=== PATIENT | male | born 1945 | race Hispanic/Latino ===

== ENCOUNTER 2020-03-05 19:58 | Inpatient (IN) | payer MEDICARE, OTHER ==
[~2020-03-05] VITALS: Ht 165.1 cm; Wt 88.5 kg
[2020-03-05] MEDS ORDERED: ACETAMINOPHEN 325 MG TAB PO STA (20:01)
[2020-03-05] MEDS ORDERED: CEFEPIME 1GM/NS 0.9% 50 ML 50 ML IV STA (20:06)
[2020-03-05] MEDS ORDERED: VANCOMYCIN 750MG/NS 150ML IVPB 150 ML IV SCH (20:15)
[2020-03-05] MEDS ORDERED: SODIUM CHLORIDE 0.9% 1000ML 1,000 ML IV SCH (20:15)
--- NOTE | 2020-03-05 20:57 | Emergency Department Note ---
History of Present Illnes History of Present Illness Chief Complaint: Neurological History of Present Illness This is a 75 year old male Chief Complaint Comment Patient brought in by [facility] for c/o fever since Sunday. [facility] but left becuase the wait was too long. Historian: Program Manager Environmental Planning/EMS Arrival Mode: [facility] Treatment WEBFOCUS DEVELOPER: IV, See EMS Report Machine Feeder Raw Stock Required: No Past Medical/Family History Physician Review I have reviewed the patient's past medical and family history. Any updates have been documented here. Past Medical History Recent Fever: No Clinical Suspicion of Infectio: No New/Unexplained Change in Ment: No Other Surgery: FB FROM LEG Physical Exam Related Data Allergies: Coded Allergies: No Known Drug Allergies (Verified Allergy, Mild, 06/23/09) Triage Vital Signs Vital Signs Date Time Temp Pulse Resp B/P (MAP) Pulse Ox O2 Delivery O2 Flow Rate FiO2 03/05/20 20:00 100.6 78 16 128/95 97 Room Air Physical Exam CONSTITUTIONAL HENT EYES NECK PULMONARY CARDIOVASCULAR GASTROINTESTINAL GENITOURINARY SKIN MUSCULOSKELETAL NEUROLOGICAL PSYCHOLOGICAL Assessment & Plan Medical Decision Making MDM 75 y.o m presents for fever, confusion, diarrhea. W/u shows enterocolitis. Doubt meningitis. HIV history but on HAART and states he is undetectable. Vanc/Cefepime started. Admitted to Dr. Malik for enterocolitis. Reassessment Reassessment time: 23:18 Reassessment Well appearing, NAD Assessment & Plan Final Impression: (1) Enterocolitis Depart Disposition: ADMITTED Last Vital Signs Date Time Temp Pulse Resp B/P (MAP) Pulse Ox O2 Delivery O2 Flow Rate FiO2 03/05/20 20:00 100.6 78 16 128/95 97 Room Air Home Meds No Active Prescriptions or Reported Meds Medications in the ED Acetaminophen 650 mg ONCE STAT PO ; Start 03/05/20 at 20:01; Stop 03/05/20 at 20:07; Status DC Sodium Chloride 1,000 ml @ 0 mls/hr Q0M IV ; Start 03/05/20 at 20:15; Stop 03/05/20 at 21:14 Cefepime HCl 50 ml @ 100 mls/hr Q12H STAT IV ; Start 03/05/20 at 20:06; Stop 03/05/20 at 20:35; Status DC Vancomycin HCl 150 ml @ 100 mls/hr Q12H IV ; Start 03/05/20 at 20:15; Stop 03/12/20 at 20:14 CHERYL VILLALTA MD Mar 05, 2020 20:57
[2020-03-05 21:11] LABS: BASOPHILS % 0.3 % (0.0-1.0); EOSINOPHILS % 0.1 % (0.0-6.0); HEMATOCRIT 41.6 % (38.2-49.6); LYMPHOCYTES # (AUTO) 0.8 (1.0-3.2); LYMPHOCYTES % 7.7 % (18.0-39.1); MEAN CORPUSCULAR HEMOGLOBIN 30.2 pg (28-32); MEAN CORPUSCULAR HGB CONC 33.7 g/dL (31-35); MEAN CORPUSCULAR VOLUME 89.7 fL (81-99); MONOCYTES # (AUTO) 0.9 (0.2-0.8); MONOCYTES % 8.1 % (4.4-11.3); NEUTROPHILS # (AUTO) 8.8 (2.1-6.9); NEUTROPHILS % 83.2 % (38.7-80.0); PLATELET COUNT 164 x10e3/uL (140-360); RED BLOOD COUNT 4.64 x10e6/uL (4.3-5.7); RED CELL DISTRIBUTION WIDTH 12.5 % (11.7-14.4)
[2020-03-05 21:32] LABS: ALANINE AMINOTRANSFERASE 25 IU/L (0-55); ALBUMIN 3.5 g/dL (3.5-5.0); ALBUMIN/GLOBULIN RATIO 1.3 (0.8-2.0); ALKALINE PHOSPHATASE 66 IU/L (40-150); ANION GAP 12.5 mmol/L (8-16); BLOOD UREA NITROGEN 18 mg/dL (7-26); BUN/CREATININE RATIO 18 (6-25); CALCIUM 8.2 mg/dL (8.4-10.2); CARBON DIOXIDE 24 mmol/L (22-29); CHLORIDE 104 mmol/L (98-107); CREATININE, SERUM 0.99 mg/dL (0.72-1.25); EST GLOMERULAR FILTRATION RATE > 60 ML/MIN (60-); GLUCOSE 117 mg/dL (74-118); POTASSIUM 3.5 mmol/L (3.5-5.1); SODIUM 137 mmol/L (136-145)
--- NOTE | 2020-03-05 21:35 | Diagnostic Imaging Report ---
Exam: Head CT without contrast History: Fever, altered mental status Comparison studies: None Technique: Axial images were obtained from the skull base to the vertex. Coronal and sagittal images reconstructed from the axial data. Dose modulation, iterative reconstruction, and/or weight based adjustment of the mA/kV was utilized to reduce the radiation dose to as low as reasonably achievable. Radiation dose: Total DLP: 832 mGy*cm. Estimated effective dose: DLP x 0.015 Intravenous contrast: None Findings: Scalp: No abnormalities. Bones: No fractures, blastic or lytic lesions. Brain sulci: Appropriate for age. Ventricles: Normal in size and configuration. No hydrocephalus. Extra-axial spaces: No masses, no fluid collection. Parenchyma: No mass, acute hemorrhage or acute or chronic cortical insults. A few scattered subtle hypodensities in the supratentorial white matter are nonspecific but are most compatible with chronic microvascular ischemic changes. Sellar/suprasellar region: No abnormalities. Craniocervical junction: Patent foramen magnum. No Chiari one malformation. Included paranasal sinuses: Clear. Middle ear cavities and mastoids: Clear. Incidental findings: Atherosclerotic calcifications in the carotid siphons. IMPRESSION: 1. No acute intracranial abnormalities. 2. Mild chronic microvascular ischemic changes. Signed by: Dr. David Velasco M.D. on 03/05/2020 9:32 PM
[2020-03-05] MEDS ORDERED: IOPAMIDOL 370 MG/ML 200 ML INFUS..BTL INJ ONE (22:01)
[2020-03-05] MEDS ORDERED: SODIUM CHLORIDE 0.9% 50ML 50 ML ONE (22:01)
--- NOTE | 2020-03-05 22:27 | Diagnostic Imaging Report ---
EXAMINATION: CHEST SINGLE (PORTABLE) INDICATION: Fever COMPARISON: Same day abdominal CT FINDINGS: TUBES and LINES: None. LUNGS: Normal lung volumes. Lungs are clear. Prominent central pulmonary vasculature. PLEURA: No pleural effusion or pneumothorax. HEART AND MEDIASTINUM: Cardiac size is mildly enlarged. BONES AND SOFT TISSUES: No acute osseous lesion. Soft tissues are unremarkable. UPPER ABDOMEN: No free air under the diaphragm. IMPRESSION: Mild cardiomegaly and pulmonary vascular congestion. Signed by: Brent Godinez DO on 03/05/2020 10:22 PM
--- NOTE | 2020-03-05 22:30 | Diagnostic Imaging Report ---
EXAM: CT Abdomen and Pelvis WITH contrast INDICATION: Abdominal pain, fever COMPARISON: None. TECHNIQUE: Abdomen and pelvis were scanned utilizing a multidetector helical scanner from the lung base to the pubic symphysis after administration of IV contrast. Coronal and sagittal reformations were obtained. Routine protocol was performed. Scan was performed when during portal venous phase. IV CONTRAST: 100 mL of Isovue 370 ORAL CONTRAST: None COMPLICATIONS: None RADIATION DOSE: Total DLP: 760 mGy*cm Estimated effective dose: (DLP x 0.015 x size factor) mSv CTDIvol has been reviewed. It is below the limits set by the Radiation Protocol Committee (RPC). Dose modulation, iterative reconstruction, and/or weight based adjustment of the mA/kV was utilized to reduce the radiation dose to as low as reasonably achievable. FINDINGS: LINES and TUBES: None. LOWER THORAX: Unremarkable HEPATOBILIARY: Tiny hypodensity in the right hepatic lobe, too small to characterize, likely benign. Hypodense liver. No focal hepatic lesions. No biliary ductal dilation. GALLBLADDER: No radio-opaque stones or sludge. No wall thickening. SPLEEN: No splenomegaly. PANCREAS: No focal masses or ductal dilatation. ADRENALS: No adrenal nodules KIDNEYS/URETERS: Kidneys enhance symmetrically. No hydronephrosis. No cystic or solid mass lesions. No stones. GI TRACT: Small sliding gastric hiatal hernia with mild distal esophageal wall thickening. No abnormal distention, or evidence of bowel obstruction. Mild wall thickening of the distal ileum and cecum and descending/transverse colon. Appendix is normal. PELVIC ORGANS/BLADDER: Mild prostatomegaly. LYMPH NODES: No lymphadenopathy. VESSELS: Arterial calcifications. PERITONEUM / RETROPERITONEUM: No free air or fluid. BONES: Degenerative changes. SOFT TISSUES: Unremarkable. IMPRESSION: Subtle findings suggestive of enterocolitis. Hepatic steatosis. Signed by: Brent Godinez DO on 03/05/2020 10:30 PM
[2020-03-05 22:35] LABS: BILIRUBIN,URINE NEGATIVE (NEGATIVE); CLARITY,URINE CLEAR (CLEAR); COLOR,URINE YELLOW (YELLOW); KETONES,URINE NEGATIVE (NEGATIVE); LEUKOCYTE ESTERASE ,URINE NEGATIVE (NEGATIVE); NITRITE,URINE NEGATIVE (NEGATIVE); PROTEIN,URINE DIPSTICK NEGATIVE (NEGATIVE); URINE UROBILINOGEN 0.2 mg/dL (0.2 - 1)
[2020-03-05 22:42] LABS: BACTERIA,URINE FEW /HPF; EPITHELIAL CELLS,URINE RARE /LPF; RBC,URINE 0-5 /HPF (0-5); WBC,URINE (MAN) 0-5 /HPF (0-5)
[2020-03-05] MEDS ORDERED: ONDANSETRON HCL INJ 2MG/ML 2ML 2 MG/ML VIAL IV PRN (23:30)
[2020-03-05] MEDS ORDERED: MORPHINE SULFATE INJ 4 MG/ML INJ 1ML IV PRN (23:30)
[2020-03-05] MEDS ORDERED: VANCOMYCIN 1GM/NS 250 ML 250 ML IV ONE (23:45)
[2020-03-06] VITALS (10 sets, daily range): BP systolic 99–140; BP diastolic 58–93
--- NOTE | 2020-03-06 01:15 | NUR ---
RECEIVED PATIENT FROM ER. PATIENT IS AAOX3. RESP EVEN AND UNLABORED. NO ACUTE DISTRESS NOTED AT THIS TIME. ORIENTED TO ROOM. EDUCATED PT ABOUT FALL PRECAUTIONS. PT VERBALIZED UNDERSTANDING. BED IS LOW AND LOCKED. SIDE RAILS X2. CALL LIGHT WITH IN EASY REACH. BED ALARM IS ON. ALL SAFETY MEASURES IN PLACE. PT DENIES NEEDS AT THIS TIME.
[2020-03-06 05:43] LABS: BASOPHILS % 0.2 % (0.0-1.0); EOSINOPHILS % 0.1 % (0.0-6.0); HEMATOCRIT 42.1 % (38.2-49.6); LYMPHOCYTES # (AUTO) 0.9 (1.0-3.2); MEAN CORPUSCULAR HGB CONC 33.3 g/dL (31-35); MEAN CORPUSCULAR VOLUME 90.3 fL (81-99); MONOCYTES # (AUTO) 0.9 (0.2-0.8); MONOCYTES % 9.2 % (4.4-11.3); NEUTROPHILS # (AUTO) 7.7 (2.1-6.9); NEUTROPHILS % 81.3 % (38.7-80.0); PLATELET COUNT 148 x10e3/uL (140-360); RED BLOOD COUNT 4.66 x10e6/uL (4.3-5.7); RED CELL DISTRIBUTION WIDTH 12.6 % (11.7-14.4)
[2020-03-06 06:06] LABS: ANION GAP 10.5 mmol/L (8-16); BLOOD UREA NITROGEN 16 mg/dL (7-26); BUN/CREATININE RATIO 20 (6-25); CARBON DIOXIDE 23 mmol/L (22-29); CHLORIDE 108 mmol/L (98-107); EST GLOMERULAR FILTRATION RATE > 60 ML/MIN (60-); GLUCOSE 108 mg/dL (74-118); POTASSIUM 3.5 mmol/L (3.5-5.1); SODIUM 138 mmol/L (136-145)
[2020-03-06] MEDS ORDERED: TIVICAY50 MG PO (07:02)
[2020-03-06] MEDS ORDERED: SERTRALINE HCL50 MG PO (07:02)
[2020-03-06] MEDS ORDERED: LORATADINE10 M1 PO (07:02)
[2020-03-06] MEDS ORDERED: NAMENDA10 MG PO (07:02)
[2020-03-06] MEDS ORDERED: ATORVASTATIN CA10 MG PO (07:02)
[2020-03-06] MEDS ORDERED: ASPIRIN81 MG PO (07:02)
[2020-03-06] MEDS ORDERED: LEVOFLOXACIN 500MG/D5W 100ML 100 ML IV SCH (12:15)
--- NOTE | 2020-03-06 12:26 | History and Physical ---
CHIEF COMPLAINT: Diarrhea, abdominal pain, and food poisoning. HISTORY OF PRESENT ILLNESS: The patient is a 75-year-old male, came into the hospital complaining of increasing abdominal pain. The patient apparently was eating some raw oyster and developed abdominal pain for the past three days. He went to the emergency room at the [facility] and he was with a lot of pain, but they were slow in response to his symptoms. Therefore, he signed out against medical advice and now he is emergency room for a visit. The patient is having diarrhea. He is having abdominal pain. Potassium was 3.5. The patient's CT scan showed enterocolitis. He is also still having diarrhea, dehydration, and abdominal pain. The patient is admitted for treatment. PAST MEDICAL HISTORY: The patient has HIV. Hypertension. Dyslipidemia. Depression and anxiety disorder. Some mild dementia. PAST SURGICAL HISTORY: Noncontributory. SOCIAL HISTORY: The patient does not smoke or use alcohol. No regular drugs. ALLERGIES: NO KNOWN ALLERGIES. HOME MEDICATIONS: The patient on his HIV medication Namenda, Zoloft, Tivicay, and aspirin. REVIEW OF SYSTEMS: Diarrhea, abdominal pain. Some nausea, but no vomiting. No neurological deficit. No chest pain. No shortness of breath. PHYSICAL EXAMINATION: VITAL SIGNS: Temperature is 101, blood pressure 122/93, pulse rate 67, and respirations 18. GENERAL: The patient is not in acute distress. HEENT: Normocephalic and atraumatic. Anicteric. NECK: Supple. PULMONARY: Diminished breath sounds. CARDIOVASCULAR: S1-S2. Regular rate and rhythm. ABDOMEN: Soft, tenderness with no guarding or rebound tenderness. EXTREMITIES: No cyanosis or edema. NEUROLOGIC: No focal deficit. LABORATORY DATA: Sodium is 137, potassium 3.5, chloride 104, bicarb 24, BUN 18, creatinine 0.9, and glucose 117. WBC is 10.3, hemoglobin 14, hematocrit 42, and platelets 364. Coronavirus disease-19, pending. Urinalysis unremarkable. CT of abdomen and pelvis showed enterocolitis. Hepatic steatosis. Chest x-ray showed mild cardiomegaly and mild pulmonary vascular congestion. IMPRESSION: 1. Acute gastroenteritis. 2. Enterocolitis. 3. Abdominal pain. 4. Baseline human immunodeficiency virus. 5. Fever. 6. Electrolyte disorder. PLAN: Replace electrolytes. Antibiotic. Rocephin IV and oral vancomycin. Resume the patient's home medication. Check for blood culture. Urine culture. We will monitor the patient closely due to his HIV status. Coronavirus 19 serology PCR is still pending. MD ARMINDA Ocampo/MODL /[id number]
--- NOTE | 2020-03-06 13:17 | Consultation ---
DATE OF CONSULTATION: 03/06/2020 REQUESTING PHYSICIAN: Hermilo Malik MD. REASON FOR CONSULTATION: Consultation requested regarding HIV disease and gastroenteritis. Thank you for this consultation. HISTORY OF PRESENT ILLNESS: This is a 75-year-old male who has a history of HIV disease, virus load, and cell count. CD4 count is under control. The patient is on Truvada and Tivicay, who was brought in because of diarrhea. The patient had raw oysters about 3-4 days ago. The patient was admitted because of fever, confusion. Initial temperature 100.6 degrees with slight tachycardia. Blood pressure was stable. On initial evaluation, WBC count of 10, platelets 164. Blood cultures are pending. Urine cultures were done, pending. Urinalysis is unremarkable. COVID-19 testing was done, which is pending. The patient did have a CT scan of the abdomen and pelvis done which showed subtle findings of enterocolitis and hepatic steatosis. Chest x-ray showed mild cardiomegaly and pulmonary vascular congestion. Brain CT, no acute abnormalities. PAST MEDICAL HISTORY: HIV disease, on antiretroviral treatment. PAST SURGICAL HISTORY: Unremarkable. MEDICATIONS: Chronic medications are reviewed. FAMILY HISTORY: Noncontributory. SOCIAL HISTORY: No active alcohol, tobacco, or drug use. PHYSICAL EXAMINATION: VITAL SIGNS: Temperature 100.1, pulse 57, respiratory rate 18, and blood pressure 133/87. HEENT: Normocephalic, atraumatic. Extraocular movements not accessed. NECK: Supple. LUNGS: Fair air entry bilaterally. Clear to auscultation. HEART: Sounds S1, S2. No murmur. No gallop. ABDOMEN: Soft, nontender, and normoactive bowel sounds. EXTREMITIES: There is no cyanosis, clubbing, or edema. Pulses are 2+. LABORATORY DATA: Revealed WBC count of 9.4, hemoglobin 14, and platelets 148. BUN 16, creatinine 0.8, and lactic acid 0.7. LFTs are normal. ASSESSMENT: A 75-year-old male with, 1. Acute gastroenteritis which started after ingestion of raw oysters. High probability of Vibrio related gastroenteritis. 2. Human immunodeficiency virus disease, stable by history. The patient has an undetectable viral load. He is on Truvada and Tivicay. RECOMMENDATIONS: We will place the patient on an antibiotic regimen of levofloxacin. Follow up cultures obtained, stool studies. We will continue to follow. Thank you, Dr. Malik, for this consultation. We will follow the patient along with you. Bill Fortuen MD SR/MODL /[id number] cc: Hermilo Malik MD
[2020-03-06] MEDS ORDERED: ACETAMINOPHEN 325 MG TAB PO PRN (16:45)
[2020-03-06] MEDS: MEMANTINE 10 MG TAB PO SCH (17:46)
--- NOTE | 2020-03-06 19:15 | NUR ---
BEDSIDE SHIFT REPORT RECEIVED. PATIENT IS RESTING IN BED, AAOX3. RESP EVEN AND UNLABORED. NO ACUTE DISTRESS NOTED AT THIS TIME. TELE IN PLACE. EDUCATED PT ABOUT FALL PRECAUTIONS. PT VERBALIZED UNDERSTANDING. BED IS LOW AND LOCKED. SIDE RAILS X2. CALL LIGHT WITH IN EASY REACH. BED ALARM IS ON. ALL SAFETY MEASURES IN PLACE. PT DENIES NEEDS AT THIS TIME.
[2020-03-06] MEDS: SERTRALINE HCL 50 MG TAB PO SCH (20:25)
[2020-03-07] VITALS (8 sets, daily range): BP systolic 119–155; BP diastolic 60–98
[2020-03-07] MEDS: HYDROCODONE/APAP 5MG-325MG TAB PO PRN ×2 (05:47→20:42)
[2020-03-07] MEDS: MEMANTINE 10 MG TAB PO SCH ×2 (08:20→15:54)
[2020-03-07] MEDS: LORATADINE 10 MG TAB PO SCH (08:20)
[2020-03-07] MEDS ORDERED: ONDANSETRON HCL 4 MG ORAL DISINTEGRATING TAB PO PRN (13:45)
--- NOTE | 2020-03-07 19:03 | NUR ---
Report given to oncoming nurse of patient's status. Resting mid fowlers position. No s/s of acute distress noted. Side rails upx2, call light within reach.
[2020-03-07] MEDS ORDERED: LEVOFLOXACIN 500MG/D5W 100ML 100 ML IV SCH (20:00)
[2020-03-07] MEDS ORDERED: SODIUM CHLORIDE 0.9% 250ML 250 ML ONE (20:24)
[2020-03-07] MEDS: SERTRALINE HCL 50 MG TAB PO SCH (20:42)
[2020-03-08 02:26] VITALS: BP 124/70
[2020-03-08 05:18] VITALS: BP 143/79
[2020-03-08 05:56] LABS: BASOPHILS % 0.4 % (0.0-1.0); EOSINOPHILS # (AUTO) 0.2 (0.0-0.4); EOSINOPHILS % 2.5 % (0.0-6.0); HEMATOCRIT 41.2 % (38.2-49.6); HEMOGLOBIN 14.2 g/dL (14.0-18.0); LYMPHOCYTES # (AUTO) 1.6 (1.0-3.2); LYMPHOCYTES % 20.6 % (18.0-39.1); MEAN CORPUSCULAR HEMOGLOBIN 30.7 pg (28-32); MEAN CORPUSCULAR HGB CONC 34.5 g/dL (31-35); MEAN CORPUSCULAR VOLUME 89.2 fL (81-99); MONOCYTES # (AUTO) 0.9 (0.2-0.8); MONOCYTES % 11.4 % (4.4-11.3); NEUTROPHILS # (AUTO) 4.9 (2.1-6.9); NEUTROPHILS % 64.7 % (38.7-80.0); PLATELET COUNT 171 x10e3/uL (140-360); RED BLOOD COUNT 4.62 x10e6/uL (4.3-5.7); RED CELL DISTRIBUTION WIDTH 12.2 % (11.7-14.4)
[2020-03-08 06:25] LABS: ANION GAP 13.4 mmol/L (8-16); BLOOD UREA NITROGEN 11 mg/dL (7-26); BUN/CREATININE RATIO 13 (6-25); CALCIUM 8.5 mg/dL (8.4-10.2); CARBON DIOXIDE 23 mmol/L (22-29); CHLORIDE 104 mmol/L (98-107); CREATININE, SERUM 0.86 mg/dL (0.72-1.25); EST GLOMERULAR FILTRATION RATE > 60 ML/MIN (60-); GLUCOSE 100 mg/dL (74-118); POTASSIUM 3.4 mmol/L (3.5-5.1); SODIUM 137 mmol/L (136-145)
[2020-03-08] MEDS: HYDROCODONE/APAP 5MG-325MG TAB PO PRN (06:51)
--- NOTE | 2020-03-08 07:00 | NUR ---
BEDSIDE SHIFT REPORT RECEIVED FROM MANAGER FLIGHT OPERATIONS RN. PT DENIES NEEDS AT THIS TIME.
[2020-03-08 08:16] VITALS: BP 133/67
[2020-03-08 08:39] VITALS: BP 133/67
[2020-03-08] MEDS: LORATADINE 10 MG TAB PO SCH (08:55)
[2020-03-08] MEDS: MEMANTINE 10 MG TAB PO SCH (08:56)
[2020-03-08 11:36] VITALS: BP 129/73
--- NOTE | 2020-03-08 12:05 | Progress Note ---
DATE: 03/08/2020 SUBJECTIVE: The patient overall has been doing well. Progress noted. Notes reviewed. Diarrhea has improved. OBJECTIVE: VITAL SIGNS: Temperature 97.9, pulse 54, respiratory rate 20, blood pressure 133/66. HEENT: Normocephalic, atraumatic. Extraocular movements not accessed. NECK: Supple. LUNGS: Fair air entry bilaterally. Clear to auscultation. HEART: Sounds S1, S2. No murmur or gallop. ABDOMEN: Soft, nontender, normoactive bowel sounds. EXTREMITIES: There is no cyanosis, clubbing, or edema. Pulses are 2+. LABORATORY DATA: BUN 11, creatinine 0.8. WBC count is 7.6, hemoglobin 14, and platelets of 171. ASSESSMENT: This is a 75-year-old male with: 1. Human immunodeficiency virus disease on antiretroviral therapy, stable. 2. Gastroenteritis likely secondary to Vibrio infection. RECOMMENDATIONS: Continue levofloxacin on discharge. HIV care. Follow up as an outpatient with his physician. Bill Fortune MD SR/YEN /[id number]
--- NOTE | 2020-03-08 12:15 | Discharge Summary ---
FACING BASTER: Dr. Bill Fortune. FINAL DIAGNOSES: 1. Acute gastroenteritis after eating oyster. 2. Acute enterocolitis. 3. Fever, resolved. 4. Baseline human immunodeficiency virus, nondetected viral load. HOSPITAL COURSE: A 75-year-old male eating some uncooked oyster, but per the patient that was bad causing him diarrhea, abdominal pain and fever. The patient came into the emergency room for evaluation. He was [facility] [place] [facility], but left AMA because they take too long, but then came here for evaluation. Here, the patient was given IV fluids, antibiotics, basically Levaquin for possible vibrio infection, acute gastroenteritis. The patient because of his HIV status all those undetected virus load the patient is on medication. The patient is stable. He is ambulatory. No fever. He is eating. No diarrhea. No constipation. No abdominal pain. He will complete the course of Levaquin 5 mg daily for five more days. Zofran as needed for nausea and vomiting. The patient will be discharged home today. Follow up with his family doctor in a week. Resume home medication. Diet as tolerated. Activity as tolerated. Discussed with the patient regarding if having diarrhea the patient should drink Pedialyte and should not take antidiarrhea medication unless okay with his primary care physician. No antidiarrhea [id number] recommended at this time. The patient is stable, discharged home today. MD ARMINDA Ocampo/YEN /[id number]
== END 2020-03-08 11:35 | disposition home or self-care (01) | DRG 392 ==
LOC: ER 20:27 → ERHOLD 23:19 → MED/SURG2 03-06 00:46 → OBSVTOIN 03-06 11:42
PROVIDERS: ADMIT Internal Medicine; ATTEND Internal Medicine
DX: K52.89 Other specified noninfective gastroenteritis and colitis (principal); Z21 Asymptomatic human immunodeficiency virus [HIV] infection status; Z11.59 Encounter for screening for other viral diseases; E87.8 Other disorders of electrolyte and fluid balance, not elsewhere classified; Z79.899 Other long term (current) drug therapy; I10 Essential (primary) hypertension; E78.5 Hyperlipidemia, unspecified; F32.9 Major depressive disorder, single episode, unspecified; F41.9 Anxiety disorder, unspecified
CPT/HCPCS: 36415; 70450; 71045; 74177; 80048; 80053; 81001; 83605; 85025; 87040; 87045; 87086; 99284; G0378; J0692; J1956; J3370; J7030; J7050; Q9967

== ENCOUNTER 2025-02-28 11:39 | Emergency (ER) | payer MEDICARE, OTHER ==
[~2025-02-28] VITALS: Ht 165.1 cm; Wt 88.5 kg
[~2025-02-28 11:39] MED LIST: ASPIRIN81 MG PO; ATORVASTATIN CA10 MG PO; LORATADINE10 M1 PO; NAMENDA10 MG PO; SERTRALINE HCL50 MG PO; TIVICAY50 MG PO
[2025-02-28 11:49] VITALS: PULSE 82; RESP 18; TEMP 98.3; O2SAT 95
== END 2025-02-28 12:25 | disposition home or self-care (01) ==
LOC: ER 11:43
DX: G89.18 Other acute postprocedural pain (principal); Z96.651 Presence of right artificial knee joint; I10 Essential (primary) hypertension; B20 Human immunodeficiency virus [HIV] disease
CPT/HCPCS: 99282